=== PATIENT | male | born 1975 | race Hispanic/Latino ===

== ENCOUNTER 2018-01-23 10:53 | Emergency (ER) | payer BC ==
[2018-01-23 11:33] VITALS: BMI 28.2
[2018-01-23 11:36] VITALS: TEMP 98.3; O2SAT 98
[2018-01-23 11:38] VITALS: BP 154/97
--- NOTE | 2018-01-23 12:18 | ED PDOC ---
Lower Extremity Pain/Injury Time Seen by Provider: 01/23/18 12:00 Chief Complaint (Nursing): Lower Extremity Problem/Injury Chief Complaint (Provider): Lower Extremity Injury History Per: Patient History/Exam Limitations: no limitations Onset/Duration Of Symptoms: Hrs (since last evening) Current Symptoms Are (Timing): Still Present Additional Complaint(s): 42 year old male presents to ED with complaints of left foot pain since last evening and has no past medical history. Patient states he was playing volleyball when he jumped and landed on the lateral aspect of his foot. 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 PCP: None - Ankle/Foot Description Of Injury: Struck Against Object Past Medical History Reviewed: Historical Data, Nursing Documentation, Vital Signs Vital Signs: Last Vital Signs Temp 98.3 F 01/23/18 11:33 Pulse 116 H 01/23/18 11:33 Resp 17 01/23/18 11:33 BP 154/97 H 01/23/18 11:33 Pulse Ox 98 01/23/18 11:33 - Medical History PMH: No Chronic Diseases - Surgical History Surgical History: No Surg Hx - Family History Family History: States: Unknown Family Hx - Living Arrangements Living Arrangements: With Family - Social History Current smoker - smoking cessation education provided: No Ex-Smoker (has not smoked in the last 12 months): No Alcohol: Social Drugs: Denies - Home Medications Home Medications: Ambulatory Orders Medication Instructions Recorded oxyCODONE/Acetaminophen [Percocet 1 ea PO Q6H PRN #10 tab 01/23/18 5/325 mg Tab] - Allergies Allergies/Adverse Reactions: Allergies Allergy/AdvReac Type Severity Reaction Status Date / Time No Known Allergies Allergy Verified 01/23/18 11:56 Wells Criteria for PE - Wells Criteria for Pulmonary Embolism Clinical Signs and Symptoms of DVT: No P.E is #1 Diagnosis, or Equally Likely: No Heart Rate >100: Yes Immobilization at least 3 days;Surgery previous 4 weeks: No Previous, objectively diagnosed PE or DVT: No Hemoptysis: No Malignancy w/treatment within 6 months, or palliative: No Total Score: 1.5 Review of Systems ROS Statement: Except As Marked, All Systems Reviewed And Found Negative Musculoskeletal: Positive for: Foot Pain (left foot pain) Physical Exam - Reviewed Nursing Documentation Reviewed: Yes Vital Signs Reviewed: Yes - Physical Exam Appears: Positive for: Non-toxic, No Acute Distress Skin: Positive for: Normal Color, Warm, Dry Eye Exam: Positive for: Normal appearance Neck: Positive for: Painless ROM Respiratory: Negative for: Respiratory Distress Pulses-Dorsalis Pedis (L): 2+ Pulses-Dorsalis Pedis (R): 2+ Extremity: Positive for: Tenderness (Tenderness to the left 4th and 5th metatarsal. No tenderness to the lateral or medical malleoli). Negative for: Deformity Neurologic/Psych: Positive for: Alert, Oriented - ECG O2 Sat by Pulse Oximetry: 98 (RA) Pulse Ox Interpretation: Normal Medical Decision Making Medical Decision Makin Initial impression: sprain v fracture Initial plan: * Ibuprofen 600mg PO * XR FOOT LEFT * Re-eval 1310 - (+) fracture of the proximal 5th metatarsal. Podiatry paged. Scribe Attestation: Documented by Niurka Scott, acting as a scribe for Rosangela Nowak PA-C Provider Scribe Attestation: All medical record entries made by the Scribe were at my direction and personally dictated by me. I have reviewed the chart and agree that the record accurately reflects my personal performance of the history, physical exam, medical decision making, and the department course for this patient. I have also personally directed, reviewed, and agree with the discharge instructions and disposition. 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 Prescriptions: oxyCODONE/Acetaminophen [Percocet 5/325 mg Tab] 1 ea PO Q6H PRN #10 tab PRN Reason: Pain, Severe (8-10) Instructions: Foot Fracture (DC) Forms: [employer] (Croatian), [facility] ED School/Work Excuse
--- NOTE | 2018-01-23 14:48 | RAD ---
PROCEDURE: Left Foot Radiographs. HISTORY: 4-5th metatarsal tenderness COMPARISON: None. FINDINGS: BONES: Transverse fracture at the base of the 5th metatarsal. The finding is marked on the study for review. JOINTS: Normal. SOFT TISSUES: Soft tissue swelling attests to the acuity of the fracture. OTHER FINDINGS: None. IMPRESSION: Acute transverse fracture proximal 5th metatarsal.
--- NOTE | 2018-01-23 15:23 | CP.PCM.CON ---
History of Present Illness - History of Present Illness History of Present Illness: Podiatry consult note for Dr. Hope: 42 yo patient with no significant past medical history presents today s/p left foot injury after stepping on a friends foot while playing volleyball. Patient states that he was playing yesterday and came down on another foot after jumping for a ball. He states that he has been nonweightbearing since the injury and that he iced his foot and elevated it over night. He states that the pain has been constant and rates it at a 6/10. He noticed swelling along the outside of his left foot instantly and states it has not gone down. He has not taken any medication for pain but states he would like to take something stronger than tylenol. He denies N/V/F/C/SOB/CP/D and has no other pedal complaints at this time. He presents today ambulating with crutches. PMHx: none PSHx: none All: NKDA Review of Systems - Review of Systems All systems: reviewed and no additional remarkable complaints except Review of Systems: see hpi Past Patient History - Past Social History Alcohol: Social Drugs: Denies - CARDIAC Other/Comment: CARDIAC SURGERY A CHILD - PSYCHIATRIC Hx Substance Use: No - SURGICAL HISTORY Hx Herniorrhaphy: Yes Other/Comment: CARDIAC SURGERY A CHILD - ANESTHESIA Hx Anesthesia: Yes Hx Anesthesia Reactions: No Meds Home Medications: Home Medication List Medication Instructions Recorded Confirmed Type oxyCODONE/Acetaminophen [Percocet 1 ea PO Q6H PRN #10 tab 01/23/18 Rx 5/325 mg Tab] Allergies/Adverse Reactions: Allergies Allergy/AdvReac Type Severity Reaction Status Date / Time No Known Allergies Allergy Verified 01/23/18 11:56 Physical Exam - Constitutional Appears: Well, Non-toxic, No Acute Distress - Head Exam Head Exam: ATRAUMATIC, NORMOCEPHALIC - Eye Exam Eye Exam: EOMI Pupil Exam: PERRL - ENT Exam ENT Exam: Mucous Membranes Moist, Normal Exam - Respiratory Exam Respiratory Exam: NORMAL BREATHING PATTERN - Extremities Exam Additional comments: Left LE focused exam: Vasc: DP and PT pulses palpable 2/4, cap refill <3 s to all digits, temp gradient warm to cool from proximal to distal, moderate edema at the dorsolateral aspect of the foot Neuro: gross and protective sensation intact Derm: Mild ecchymosis present on the dorsolateral aspect of the foot, skin temp and turgor wnl Ortho: pain on palpation of the dorsolateral and lateral foot at the proximity of the fifth metatarsal base, MMT decreased due to guarding from pain in all directions, patient can wiggle toes, no pain out of proportion, negative piano ortega test - Neurological Exam Neurological exam: Alert, Oriented x3 - Psychiatric Exam Psychiatric exam: Normal Affect, Normal Mood Results - Vital Signs Recent Vital Signs: Last Vital Signs Temp 98.3 F 01/23/18 11:33 Pulse 116 H 01/23/18 11:33 Resp 17 01/23/18 11:33 BP 154/97 H 01/23/18 11:33 Pulse Ox 98 01/23/18 14:33 Assessment & Plan - Assessment and Plan (Free Text) Assessment: 42 yo patient presents s/p stepping on friends foot with left fifth metatarsal base fracture Plan: Patient seen and examined Discussed plan in detail with Dr. Hope X-rays - radiolucency in the fifth metatarsal base consistent with nondisplaced fracture Patient will follow up either tomorrow or tuesday in [facility] with Dr. Hope Placed in modified cabrera and posterior splint and instructed to ambulate in crutches and stay nonweightbearing until next visit Educated on proper use of crutches for ambulation Instructed on RICE protocol Will take OTC medication for pain All questions and concerns addressed
[2018-01-23 16:21] VITALS: PULSE 95; RESP 18
== END 2018-01-23 14:33 | disposition home or self-care (01) ==
LOC: H.ER 10:53
DX: S92.352A Displaced fracture of fifth metatarsal bone, left foot, initial encounter for closed fracture (principal); X50.9XXA Other and unspecified overexertion or strenuous movements or postures, initial encounter; Y92.39 Other specified sports and athletic area as the place of occurrence of the external cause